=== PATIENT | male | born 1955 | race Caucasian/White ===

== ENCOUNTER 2019-09-17 16:28 | Inpatient (IN) | payer MEDICARE, MEDICAID ==
[~2019-09-17] VITALS: Ht 172.7 cm; Wt 70.0 kg
--- NOTE | 2019-09-17 16:40 | NUR ---
TO ROOM 4 FOR STROKE ALERT, PT RETURNS FROM CT. HAS SLURRED SPEECH, DIFFICULTY WITH WORD FINDING. 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 PT REPORTS DRANK 6 PK BEER AND WEED, HAS PAINFUL TOOTH.
--- NOTE | 2019-09-17 16:50 | NUR ---
PT TAKEN TO CT AND BACK TO ROOM. STROKE NURSE IS AT BEDSIDE.
[2019-09-17 16:58] LABS: BASOPHILS # (AUTO) 0.1 X10'3 (0-0.2); EOSINOPHILS # (AUTO) 0.2 X10'3 (0-0.9); EOSINOPHILS % (AUTO) 1.9 % (0-6); HEMOGLOBIN 15.9 g/dl (14.0-17.9); LYMPHOCYTES # (AUTO) 1.9 X10'3 (1.1-4.8); MEAN CORPUSCULAR HEMOGLOBIN 34.2 PG (27.0-31.0); MEAN CORPUSCULAR HGB CONC 34.6 g/dL (33.0-36.5); MEAN CORPUSCULAR VOLUME 98.7 FL (78-98); MONOCYTES # (AUTO) 0.8 X10'3 (0-0.9); MONOCYTES % (AUTO) 8.4 % (2-12); NEUTROPHILS # (AUTO) 6.5 X10'3 (1.8-7.7); NEUTROPHILS % (AUTO) 68.7 % (42-75); PLATELET COUNT 180 X10'3 (140-440); RED BLOOD COUNT 4.66 X10'6 (4.70-6.10); RED CELL DISTRIBUTION WIDTH 14.5 % (11.5-14.5); WHITE BLOOD COUNT 9.4 X10'3 (4.5-11.0)
--- NOTE | 2019-09-17 17:00 | NUR ---
ARRIVES, STATES PT HAD SEVERAL LARGE SHOTS OF ALCOHOL WITH BEER AND CANABIS . SHE IS CONCERNED THAT THIS IS A STROKE, HE HAS HAD ONE BEFORE. NEURO CONSULT WITH SOC REQUESTED.
[2019-09-17] MEDS ORDERED: mag hydrox/Alum hydrox/simeth 30ml oral suspension PO ONE (17:15)
[2019-09-17 17:16] LABS: PARTIAL THROMBOPLASTIN TIME 27 SECONDS (22-32)
[2019-09-17 17:17] LABS: ALANINE AMINOTRANSFERASE 42 U/L (12-78); ALBUMIN 3.8 G/DL (3.4-5.0); ALKALINE PHOSPHATASE 102 IU/L (46-116); ANION GAP 9 (8-16); ASPARTATE AMINO TRANSFERASE 33 U/L (10-37); BILIRUBIN,TOTAL 0.3 MG/DL (0.1-1.0); BLOOD UREA NITROGEN 11 MG/DL (7-18); BUN/CREATININE RATIO 11.5 (5.4-32.0); CALCIUM 8.7 MG/DL (8.5-10.1); CHLORIDE 106 MMOL/L (99-107); CREATININE 0.96 MG/DL (0.60-1.10); GLUCOSE 85 MG/DL (70-104); POTASSIUM 3.3 MMOL/L (3.5-5.1); SODIUM 142 MMOL/L (135-145); TOTAL CARBON DIOXIDE 26.9 MMOL/L (24-32); TOTAL PROTEIN 7.8 G/DL (6.4-8.2); eGFR 79 ML/MIN
[2019-09-17 17:19] LABS: TROPONIN I < 0.04 NG/ML (0.0-0.05)
--- NOTE | 2019-09-17 17:20 | NUR ---
DR. HOBBS CONSULTS VIA TELEMEDICINE. NIHSS 2 WITH CHRONIC RIGHT SIDE WEAKNESS.
[2019-09-17] MEDS ORDERED: NO HOME MEDS (17:51)
[2019-09-17] MEDS: normal saline 1000ml 1,000 ML IV SCH (17:52)
[2019-09-17 17:55] LABS: ETHANOL 0.231 GM/DL (0.0-0.010)
[2019-09-17] MEDS ORDERED: mag hydrox/Alum hydrox/simeth 30ml oral suspension PO PRN (17:55)
[2019-09-17] MEDS ORDERED: magnesium 2GM in 50ml NS 50 ML IV PRN (17:55)
[2019-09-17] MEDS ORDERED: magnesium hydroxide 30ml (MOM) UD suspension PO PRN (17:55)
[2019-09-17] MEDS ORDERED: magnesium 4gm in 100ml NS 100 ML IV PRN (17:55)
[2019-09-17] MEDS ORDERED: LORazepam 2 mg/ml vial IV PRN (17:55)
[2019-09-17] MEDS ORDERED: dextrose 50%-water 50ml dispensing syringe IV PRN (17:55)
[2019-09-17] MEDS ORDERED: metoclopramide 5 mg/ml inj IV PRN (17:55)
[2019-09-17] MEDS ORDERED: thiamine 100mg/ml 2ml inj. IV ONE (17:55)
[2019-09-17] MEDS ORDERED: potassium CL 10mEq/100ml bag 100 ML IV PRN ×2 (17:55)
[2019-09-17] MEDS ORDERED: ondansetron/PF 4mg/2ml inj IV PRN (17:55)
[2019-09-17] MEDS ORDERED: HYDROcodone/acetaminophen 10/325mg tab PO PRN (17:55)
[2019-09-17] MEDS ORDERED: haloperidol lactate 5mg/ml inj IM PRN (17:55)
[2019-09-17] MEDS ORDERED: acetaminophen 325mg tablet PO PRN ×2 (17:55)
[2019-09-17] MEDS ORDERED: haloperidol 5mg tablet PO PRN (17:55)
[2019-09-17] MEDS ORDERED: potassium Cl 20 mEq SR tablet PO PRN ×2 (17:55)
[2019-09-17] MEDS ORDERED: magnesium Cl slow-release 64mg tablet PO PRN (17:55)
[2019-09-17 18:08] LABS: PHOSPHORUS 3.3 MG/DL (2.3-4.5)
[2019-09-17 18:39] LABS: URINE AMPHETAMINE SCREEN NEGATIVE (Neg); URINE BARBITUATE SCREEN NEGATIVE (Neg); URINE BENZODIAZEPINES SCREEN NEGATIVE (Neg); URINE CANNABINOID SCREEN POSITIVE (Neg); URINE COCAINE SCREEN NEGATIVE (Neg); URINE METHADONE SCREEN NEGATIVE (Neg); URINE OPIATE SCREEN NEGATIVE (Neg); URINE PHENCYCLIDINE SCREEN NEGATIVE (Neg)
--- NOTE | 2019-09-17 19:16 | NUR ---
Patient refuses to wear vitals monitoring and continuously pulls them off despite education.
[2019-09-17] MEDS: HYDROcodone/acetaminophen 5mg/325mg tablet PO PRN (19:41)
--- NOTE | 2019-09-17 19:42 | NUR ---
Patient now complaining of left upper tooth pain 07/23, I gave him [place] .
[2019-09-17] MEDS: aspirin 81mg tablet.DR PO SCH (19:46)
[2019-09-17 20:21] VITALS: BP 153/94
[2019-09-17] MEDS ORDERED: pneumococcal 23-VAL P-sac vacc 25 mcg/0.5ml vial IMVAC ONE (20:45)
[2019-09-17] MEDS ORDERED: FLU VACC QS 2019-20 (6 MOS UP) 60 MCG/0.5 ML VIAL IMVAC ONE (20:50)
[2019-09-17] MEDS ORDERED: temazepam 15mg capsule PO PRN (21:00)
[2019-09-17 22:00] VITALS: BP 109/52
[2019-09-18 02:00] VITALS: BP 121/64
[2019-09-18] MEDS: normal saline 1000ml 1,000 ML IV SCH (03:52)
[2019-09-18 06:00] VITALS: BP 144/81
[2019-09-18 06:05] LABS: BASOPHILS # (AUTO) 0.1 X10'3 (0-0.2); BASOPHILS % (AUTO) 1.1 % (0-1); EOSINOPHILS # (AUTO) 0.4 X10'3 (0-0.9); EOSINOPHILS % (AUTO) 5.4 % (0-6); HEMATOCRIT 44.9 % (42.0-52.0); HEMOGLOBIN 15.3 g/dl (14.0-17.9); LYMPHOCYTES # (AUTO) 1.8 X10'3 (1.1-4.8); LYMPHOCYTES % (AUTO) 25.2 % (21-51); MEAN CORPUSCULAR HEMOGLOBIN 33.6 PG (27.0-31.0); MEAN CORPUSCULAR VOLUME 98.7 FL (78-98); MEAN PLATELET VOLUME 10.3 FL (7.4-10.4); MONOCYTES # (AUTO) 0.8 X10'3 (0-0.9); NEUTROPHILS # (AUTO) 4.1 X10'3 (1.8-7.7); NEUTROPHILS % (AUTO) 57.3 % (42-75); PLATELET COUNT 176 X10'3 (140-440); RED BLOOD COUNT 4.55 X10'6 (4.70-6.10); WHITE BLOOD COUNT 7.2 X10'3 (4.5-11.0)
--- NOTE | 2019-09-18 06:10 | NUR ---
Report given to Roberta PABON.
--- NOTE | 2019-09-18 06:31 | NUR ---
Patient in room ORTHO 4020. I have received report from Nazia PABON and had the opportunity to ask questions and assume patient care.
[2019-09-18 06:47] LABS: ALANINE AMINOTRANSFERASE 39 U/L (12-78); ALBUMIN 3.3 G/DL (3.4-5.0); ALBUMIN/GLOBULIN RATIO 0.9 (1.1-1.5); ALKALINE PHOSPHATASE 96 IU/L (46-116); ANION GAP 7 (8-16); ASPARTATE AMINO TRANSFERASE 27 U/L (10-37); BILIRUBIN,TOTAL 0.4 MG/DL (0.1-1.0); BLOOD UREA NITROGEN 15 MG/DL (7-18); BUN/CREATININE RATIO 15.2 (5.4-32.0); CALCIUM 8.6 MG/DL (8.5-10.1); CHLORIDE 108 MMOL/L (99-107); CHOL/HDL RATIO 2.7 (0.00-4.99); CHOLESTEROL 203 MG/DL (0-200); CREATININE 0.99 MG/DL (0.60-1.10); GLUCOSE 84 MG/DL (70-104); HDL CHOLESTEROL 74 MG/DL (35-60); LDL CHOLESTEROL 103 MG/DL (50-100); MAGNESIUM 2.1 MG/DL (1.5-2.4); PHOSPHORUS 3.4 MG/DL (2.3-4.5); POTASSIUM 4.3 MMOL/L (3.5-5.1); SODIUM 143 MMOL/L (135-145); TOTAL CARBON DIOXIDE 27.8 MMOL/L (24-32); eGFR 77 ML/MIN
[2019-09-18 06:48] LABS: TRIGLYCERIDES 105 MG/DL (20-135)
[2019-09-18] MEDS: aspirin 81mg tablet.DR PO SCH (07:23)
[2019-09-18] MEDS: HYDROcodone/acetaminophen 5mg/325mg tablet PO PRN (07:24)
[2019-09-18] MEDS ORDERED: K and/or MAG REPLACEMENT MC SCH (08:00)
--- NOTE | 2019-09-18 09:15 | NUR ---
Patient pulled IV out, and is refusing IV to be reinserted. Hospitalist notified.
[2019-09-18 10:00] VITALS: BP 169/72
--- NOTE | 2019-09-18 11:48 | NUR ---
Student documentation: I have reviewed all interventions, assessments performed and [facility] Medication Administration: For this medication-pass time frame, all medication were reviewed, dispensed, administered and documented per hospital policy [facility].
[2019-09-18] MEDS ORDERED: ATOR40TA PO (12:28)
[2019-09-18] MEDS ORDERED: ASPI-1071 PO (12:28)
--- NOTE | 2019-09-18 13:11 | NUR ---
Patient stable for discharge home today with . Back to baseline, all DC instructions given to patient and .
[2019-09-19] MEDS ORDERED: LORazepam 2 mg/ml vial IV PRN (17:55)
[2019-09-19] MEDS ORDERED: LORazepam 1 MG tablet PO PRN (17:55)
[2019-09-21] MEDS ORDERED: LORazepam 1 MG tablet PO PRN (17:55)
[2019-09-21] MEDS ORDERED: LORazepam 2 mg/ml vial IV PRN (17:55)
== END 2019-09-18 12:45 | disposition home or self-care (01) | DRG 896 ==
LOC: ER 16:28 → ED HOLD 18:04 → ORTHO 4S 20:00
PROVIDERS: ADMIT Family Medicine; ATTEND Family Medicine
DX: F10.229 Alcohol dependence with intoxication, unspecified (principal); G92 Toxic encephalopathy; I69.351 Hemiplegia and hemiparesis following cerebral infarction affecting right dominant side; R47.01 Aphasia; E87.6 Hypokalemia; E78.5 Hyperlipidemia, unspecified; Y90.7 Blood alcohol level of 200-239 mg/100 ml; R29.810 Facial weakness; R47.89 Other speech disturbances; I65.22 Occlusion and stenosis of left carotid artery; R09.89 Other specified symptoms and signs involving the circulatory and respiratory systems; Z79.899 Other long term (current) drug therapy
CPT/HCPCS: 36415; 70450; 71045; 80053; 80061; 80305; 80320; 83735; 84100; 84484; 85025; 85610; 85730; 87081; 93005; 97116; 97161; 97530; 99284; G0378; J3411; J7030; Q2037

== ENCOUNTER 2021-05-08 01:15 | Emergency (ER) | payer MEDICARE, MEDICAID ==
[~2021-05-08] VITALS: Ht 180.3 cm; Wt 68.2 kg
[~2021-05-08 01:15] MED LIST: ASPI-1071 PO
[2021-05-08 01:34] VITALS: BP 161/126
[2021-05-08] MEDS ORDERED: HYDROcodone/acetaminophen 5mg/325mg tablet PO ONE (02:45)
== END 2021-05-08 02:55 | disposition home or self-care (01) ==
LOC: ER 01:16
DX: S50.01XA Contusion of right elbow, initial encounter (principal); Z86.73 Personal history of transient ischemic attack (TIA), and cerebral infarction without residual deficits; Z98.890 Other specified postprocedural states; Z79.82 Long term (current) use of aspirin; Z72.89 Other problems related to lifestyle; W06.XXXA Fall from bed, initial encounter; Y93.89 Activity, other specified; Y92.89 Other specified places as the place of occurrence of the external cause; Y99.8 Other external cause status
CPT/HCPCS: 73080; 99283

== ENCOUNTER 2023-09-22 19:17 | Inpatient (IN) | payer MEDICARE, MEDICAID ==
[~2023-09-22] VITALS: Ht 172.7 cm; Wt 68.2 kg
[2023-09-22 20:10] LABS: BASOPHILS # (AUTO) 0.1 X10'3 (0-0.2); BASOPHILS % (AUTO) 1.1 % (0-1); EOSINOPHILS # (AUTO) 0.2 X10'3 (0-0.9); HEMATOCRIT 44.8 % (42.0-52.0); HEMOGLOBIN 15.1 g/dl (14.0-17.9); LYMPHOCYTES # (AUTO) 1.9 X10'3 (1.1-4.8); LYMPHOCYTES % (AUTO) 36.3 % (21-51); MEAN CORPUSCULAR HEMOGLOBIN 33.7 PG (27.0-31.0); MEAN CORPUSCULAR HGB CONC 33.6 g/dL (33.0-36.5); MEAN CORPUSCULAR VOLUME 100.2 FL (78-98); MEAN PLATELET VOLUME 10.2 FL (7.4-10.4); MONOCYTES # (AUTO) 0.4 X10'3 (0-0.9); NEUTROPHILS # (AUTO) 2.7 X10'3 (1.8-7.7); NEUTROPHILS % (AUTO) 51.6 % (42-75); PLATELET COUNT 178 X10'3 (140-440); RED BLOOD COUNT 4.47 X10'6 (4.70-6.10); RED CELL DISTRIBUTION WIDTH 12.5 % (11.5-14.5); WHITE BLOOD COUNT 5.3 X10'3 (4.5-11.0)
[2023-09-22 20:38] LABS: ALANINE AMINOTRANSFERASE 40 U/L (12-78); ALBUMIN 3.3 G/DL (3.4-5.0); ALBUMIN/GLOBULIN RATIO 0.9 (1.1-1.5); ALKALINE PHOSPHATASE 123 IU/L (46-116); ANION GAP 11 (8-16); ASPARTATE AMINO TRANSFERASE 46 U/L (10-37); BILIRUBIN,TOTAL 0.3 MG/DL (0.1-1.0); BLOOD UREA NITROGEN 7 MG/DL (7-18); BUN/CREATININE RATIO 5.5 (10.0-20.0); CALCIUM 8.5 MG/DL (8.5-10.1); CHLORIDE 104 MMOL/L (99-107); CREATININE 1.27 MG/DL (0.60-1.10); GLUCOSE 77 MG/DL (70-104); POTASSIUM 3.4 MMOL/L (3.5-5.1); SODIUM 141 MMOL/L (135-145); TOTAL CARBON DIOXIDE 26.5 MMOL/L (24-32); TOTAL PROTEIN 6.9 G/DL (6.4-8.2); eCRCL 55 ML/MIN; eGFR 57 ML/MIN
[2023-09-22 20:47] LABS: PRO BRAIN NATRIURETIC PEPTIDE 2075 PG/ML (0-125)
[2023-09-22 22:49] LABS: ETHANOL < 10 MG/DL (<10)
--- NOTE | 2023-09-22 23:17 | NUR ---
MD SEGAL NOTIFIED OF PTS ELEVATED BP. PER HE WILL PLACE ORDERS FOR PT.
[2023-09-22] MEDS ORDERED: hydrALAZINE 20mg/ml inj. IV ONE (23:30)
[2023-09-22] MEDS ORDERED: nicotine 21mg patch - 24 hr TD ONE (23:45)
--- NOTE | 2023-09-22 23:46 | NUR ---
pt requesting nicotine patch. pt states he smokes less than a pack a day. dr ferrer notified.
[2023-09-23] MEDS ORDERED: labetalol 20mg/4ml (5mg/ml) syringe IV ONE (01:15)
[2023-09-23] MEDS ORDERED: magnesium hydroxide 30ml (MOM) UD suspension PO PRN (02:35)
[2023-09-23] MEDS ORDERED: bisacodyl 10mg suppository rectal RC PRN (02:35)
[2023-09-23] MEDS ORDERED: acetaminophen 650mg rectal suppository RC PRN (02:35)
[2023-09-23] MEDS ORDERED: ondansetron 4mg rapidly disintigrating tab PO PRN (02:35)
[2023-09-23] MEDS ORDERED: diphenhydrAMINE 50 mg/ml inj IV PRN (02:35)
[2023-09-23] MEDS ORDERED: acetaminophen 325mg tablet PO PRN (02:35)
[2023-09-23] MEDS ORDERED: mag hydrox/Alum hydrox/simeth 30ml oral suspension PO PRN (02:35)
[2023-09-23] MEDS ORDERED: HYDROcodone/acetaminophen 5mg/325mg tablet PO PRN (02:35)
[2023-09-23] MEDS ORDERED: ondansetron/PF 4mg/2ml inj IV PRN (02:35)
[2023-09-23] MEDS ORDERED: diphenhydrAMINE 25mg capsule PO PRN (02:35)
[2023-09-23] MEDS ORDERED: potassium Cl 40MEQ/1/2NS 520ml 520 ML IV PRN (02:35)
[2023-09-23] MEDS ORDERED: potassium Cl 20 mEq SR tablet PO PRN ×2 (02:35)
[2023-09-23] MEDS ORDERED: haloperidol 5mg tablet PO PRN (02:45)
[2023-09-23] MEDS ORDERED: dextrose 50%-water 50ml dispensing syringe IV PRN (02:45)
[2023-09-23] MEDS ORDERED: haloperidol lactate 5mg/ml inj IM PRN (02:45)
[2023-09-23] MEDS: potassium Cl 20mEq in NS 1,000 ML IV SCH ×3 (03:33→16:52)
[2023-09-23 04:02] LABS: APTT 28 SECONDS (22-32); PROTHROMBIN TIME 10.9 SECONDS (9.0-12.0)
[2023-09-23 04:03] LABS: D-DIMER 0.45 MG/L FEU (0-0.50)
[2023-09-23 04:22] LABS: MAGNESIUM 2.1 MG/DL (1.5-2.4); POTASSIUM 3.7 MMOL/L (3.5-5.1); THYROID STIMULATING HORMONE 3.96 ulU/ml (0.34-4.50)
--- NOTE | 2023-09-23 05:06 | NUR ---
DR. JC NOTIFIED OF THE PTS BP. NO NEW ORDERS RECD.
--- NOTE | 2023-09-23 05:46 | NUR ---
I have reviewed and agree with all interventions, assessments performed and documented by MERA Hodge.
[2023-09-23] MEDS: LORazepam 2 mg/ml vial IV PRN ×2 (05:58→19:55)
--- NOTE | 2023-09-23 06:57 | NUR ---
Attempted to give report, nurse to call back.
--- NOTE | 2023-09-23 07:13 | NUR ---
Attempted to give report, no answer
[2023-09-23 07:19] LABS: URINE AMPHETAMINE SCREEN NEGATIVE (Neg); URINE BARBITUATE SCREEN NEGATIVE (Neg); URINE BENZODIAZEPINES SCREEN NEGATIVE (Neg); URINE CANNABINOID SCREEN POSITIVE (Neg); URINE COCAINE SCREEN NEGATIVE (Neg); URINE METHADONE SCREEN NEGATIVE (Neg); URINE OPIATE SCREEN NEGATIVE (Neg); URINE PHENCYCLIDINE SCREEN NEGATIVE (Neg)
--- NOTE | 2023-09-23 07:20 | NUR ---
attempted to give report to ortho, no answer
[2023-09-23] MEDS: docusate sod 100mg capsule PO SCH ×2 (08:00→19:38)
[2023-09-23] MEDS: thiamine 100mg/ml 2ml inj. IV SCH ×3 (08:35→19:55)
[2023-09-23] MEDS: atorvastatin 20mg tablet PO SCH (08:37)
[2023-09-23] MEDS: pantoprazole 40mg Tablet.DR PO SCH (08:37)
[2023-09-23] MEDS: nicotine 21mg patch - 24 hr TD SCH (08:37)
[2023-09-23 09:00] VITALS: BP 176/78; PULSE 69; RESP 14; TEMP 97.8; O2SAT 100
[2023-09-23] MEDS: folic acid 1mg/0.2ml inj IV SCH (09:31)
[2023-09-23 10:00] VITALS: BP 181/71; PULSE 70; RESP 16; TEMP 99; O2SAT 100
[2023-09-23 11:20] VITALS: RESP 14; O2SAT 100
--- NOTE | 2023-09-23 14:08 | NUR ---
PAGER ID: [phone] MESSAGE: CM HAGEN, ORTHO, 1679. RE: [id number]. PT. IS STILL NPO. CAN PT. BE PUT ON REG DIET?
--- NOTE | 2023-09-23 17:35 | NUR ---
PAGER ID: [phone] MESSAGE: CM HAGEN, ORTHO, 1324. RE: [phone]. PT. BP STILL HIGH 185/74. FYI
[2023-09-23 18:00] VITALS: BP 185/74; PULSE 71; RESP 16; TEMP 97.3; O2SAT 97
--- NOTE | 2023-09-23 18:51 | NUR ---
Problems reprioritized. Patient report given to samanta PABON, questions answered & plan of care reviewed with .
[2023-09-23 20:00] VITALS: RESP 16; O2SAT 97
[2023-09-23 22:00] VITALS: BP 182/62; PULSE 83; RESP 20; TEMP 97.4; O2SAT 96
[2023-09-24] MEDS: potassium Cl 20mEq in NS 1,000 ML IV SCH ×3 (02:52→19:31)
[2023-09-24 06:00] VITALS: BP 171/76; PULSE 66; RESP 22; TEMP 97.4; O2SAT 98
[2023-09-24 06:20] LABS: BASOPHILS # (AUTO) 0.1 X10'3 (0-0.2); BASOPHILS % (AUTO) 0.8 % (0-1); EOSINOPHILS # (AUTO) 0.2 X10'3 (0-0.9); EOSINOPHILS % (AUTO) 2.8 % (0-6); HEMATOCRIT 40.9 % (42.0-52.0); HEMOGLOBIN 13.9 g/dl (14.0-17.9); LYMPHOCYTES # (AUTO) 1.2 X10'3 (1.1-4.8); LYMPHOCYTES % (AUTO) 18.7 % (21-51); MEAN CORPUSCULAR HEMOGLOBIN 34.1 PG (27.0-31.0); MEAN CORPUSCULAR HGB CONC 33.9 g/dL (33.0-36.5); MEAN CORPUSCULAR VOLUME 100.7 FL (78-98); MONOCYTES # (AUTO) 0.5 X10'3 (0-0.9); MONOCYTES % (AUTO) 7.6 % (2-12); NEUTROPHILS # (AUTO) 4.6 X10'3 (1.8-7.7); NEUTROPHILS % (AUTO) 70.1 % (42-75); PLATELET COUNT 137 X10'3 (140-440); RED BLOOD COUNT 4.06 X10'6 (4.70-6.10); RED CELL DISTRIBUTION WIDTH 12.6 % (11.5-14.5); WHITE BLOOD COUNT 6.6 X10'3 (4.5-11.0)
[2023-09-24 06:23] LABS: ALBUMIN 2.7 G/DL (3.4-5.0); ANION GAP 6 (8-16); BLOOD UREA NITROGEN 13 MG/DL (7-18); BUN/CREATININE RATIO 9.9 (10.0-20.0); CALCIUM 8.5 MG/DL (8.5-10.1); CHLORIDE 111 MMOL/L (99-107); CREATININE 1.31 MG/DL (0.60-1.10); GLUCOSE 94 MG/DL (70-104); SODIUM 142 MMOL/L (135-145); TOTAL CARBON DIOXIDE 24.6 MMOL/L (24-32); eCRCL 53 ML/MIN; eGFR 55 ML/MIN
[2023-09-24 07:50] LABS: LARGE PLATELETS FEW; PLATELET ESTIMATE DECREASED
[2023-09-24] MEDS: docusate sod 100mg capsule PO SCH ×2 (08:00→20:00)
[2023-09-24] MEDS: pantoprazole 40mg Tablet.DR PO SCH (08:21)
[2023-09-24] MEDS: atorvastatin 20mg tablet PO SCH (08:22)
[2023-09-24] MEDS: nicotine 21mg patch - 24 hr TD SCH (08:23)
[2023-09-24] MEDS: thiamine 100mg/ml 2ml inj. IV SCH ×3 (08:28→20:41)
[2023-09-24] MEDS: folic acid 1mg/0.2ml inj IV SCH (08:28)
[2023-09-24 10:30] VITALS: RESP 16; O2SAT 99
[2023-09-24 11:00] VITALS: BP 174/79; PULSE 77; RESP 16; TEMP 98; O2SAT 99
[2023-09-24] MEDS: HYDROcodone/acetaminophen 10/325mg tab PO PRN ×2 (11:00→17:49)
--- NOTE | 2023-09-24 11:36 | NUR ---
Offered pt a toothbrush and toothpaste to brush teeth, but he did not want to at this time.
[2023-09-24] MEDS: morphine 2 MG/ML inj. syringe IV PRN ×2 (13:48→20:41)
--- NOTE | 2023-09-24 14:03 | NUR ---
Malnutrition consult: Per RN malnutrition screen pt reports no wt loss, unsure if wt loss has occurred in the last 3 months, and a decreased PO intake/appetite. Scaled wt this admit of 68.18kg (150 pounds) is consistent with prior reported wt of 150 pounds. No other recent wt hx in EMR other than pt verbally stated wt was 70kg (154 pounds) on 09/18/2019 suggesting overall wt appears to have been stable for the last few years. Pt is currently on a regular diet, appears to have great appetite with average PO intake of 100% x 2 meals. Per H&P pt physically appears well developed and well nourished. Pt presents with mild weakness which is anticipated given hx of CVA resulting in upper and lower extremity weakness per EMR. Additionally pt does not present with edema at this time. Pt lacks a minimum of two malnutrition criteria at this time. Will continue to monitor for signs and symptoms of malnutrition. Addendum: 09/24/23 at [address] Amended: Links added.
--- NOTE | 2023-09-24 15:30 | NUR ---
Student documentation: I have reviewed all interventions, assessments performed and documented by [facility] Student nurse @ [facility].
[2023-09-24 17:00] VITALS: BP 187/75; PULSE 62; RESP 15; TEMP 96.1; O2SAT 98
[2023-09-24] MEDS: LORazepam 2 mg/ml vial IV PRN (17:54)
[2023-09-24 18:00] VITALS: BP 167/75; PULSE 62; RESP 15; RESP 16; TEMP 96.1; O2SAT 98
[2023-09-24] MEDS: temazepam 15mg capsule PO PRN (20:49)
[2023-09-24 22:00] VITALS: BP 161/72; PULSE 60; RESP 16; TEMP 98.2; O2SAT 97
--- NOTE | 2023-09-24 22:01 | NUR ---
patient appeared painful, kati around neck states its chronic pain. medicated as per emar, sleeping at this time.
[2023-09-25] VITALS (7 sets, daily range): BP systolic 158–178; BP diastolic 65–90; PULSE 62–81; RESP 14–18; TEMP 97.4–98.3; O2SAT 96–97
--- NOTE | 2023-09-25 00:56 | NUR ---
Problems reprioritized. Patient report given, questions answered & plan of care reviewed with Jami PABON.
--- NOTE | 2023-09-25 01:00 | NUR ---
Patient in room ORTHO 4012. I have received report from EFRAIN and had the opportunity to ask questions and assume patient care.
[2023-09-25] MEDS ORDERED: LORazepam 2 mg/ml vial IV PRN (02:45)
[2023-09-25] MEDS ORDERED: LORazepam 1 MG tablet PO PRN (02:45)
[2023-09-25] MEDS: potassium Cl 20mEq in NS 1,000 ML IV SCH ×2 (03:38→15:05)
[2023-09-25 05:56] LABS: BASOPHILS # (AUTO) 0.1 X10'3 (0-0.2); BASOPHILS % (AUTO) 0.8 % (0-1); EOSINOPHILS # (AUTO) 0.3 X10'3 (0-0.9); EOSINOPHILS % (AUTO) 3.8 % (0-6); HEMATOCRIT 39.5 % (42.0-52.0); HEMOGLOBIN 13.1 g/dl (14.0-17.9); LYMPHOCYTES # (AUTO) 1.7 X10'3 (1.1-4.8); LYMPHOCYTES % (AUTO) 24.8 % (21-51); MEAN CORPUSCULAR HEMOGLOBIN 33.8 PG (27.0-31.0); MEAN CORPUSCULAR HGB CONC 33.3 g/dL (33.0-36.5); MEAN CORPUSCULAR VOLUME 101.6 FL (78-98); MEAN PLATELET VOLUME 10.9 FL (7.4-10.4); MONOCYTES # (AUTO) 0.5 X10'3 (0-0.9); MONOCYTES % (AUTO) 7.7 % (2-12); NEUTROPHILS # (AUTO) 4.2 X10'3 (1.8-7.7); NEUTROPHILS % (AUTO) 62.9 % (42-75); PLATELET COUNT 120 X10'3 (140-440); RED BLOOD COUNT 3.89 X10'6 (4.70-6.10); RED CELL DISTRIBUTION WIDTH 12.9 % (11.5-14.5); WHITE BLOOD COUNT 6.7 X10'3 (4.5-11.0)
[2023-09-25 06:14] LABS: ALBUMIN 2.4 G/DL (3.4-5.0); ANION GAP 8 (8-16); BLOOD UREA NITROGEN 11 MG/DL (7-18); BUN/CREATININE RATIO 8.9 (10.0-20.0); CALCIUM 8.4 MG/DL (8.5-10.1); CHLORIDE 109 MMOL/L (99-107); CREATININE 1.23 MG/DL (0.60-1.10); GLUCOSE 87 MG/DL (70-104); POTASSIUM 4.1 MMOL/L (3.5-5.1); SODIUM 142 MMOL/L (135-145); TOTAL CARBON DIOXIDE 25.4 MMOL/L (24-32); eCRCL 57 ML/MIN; eGFR 59 ML/MIN
--- NOTE | 2023-09-25 06:28 | NUR ---
I have received report from Charge, and had the opportunity to ask questions and assume patient care. No distress at this time.
--- NOTE | 2023-09-25 06:43 | NUR ---
Problems reprioritized. Patient report given, questions answered & plan of care reviewed with GRAY.
[2023-09-25] MEDS: folic acid 1mg/0.2ml inj IV SCH (06:45)
[2023-09-25] MEDS: thiamine 100mg/ml 2ml inj. IV SCH ×3 (06:46→19:14)
--- NOTE | 2023-09-25 07:22 | NUR ---
Dr. Valerie lord in re: to PRN HTN medications. Pt is asymptomatic. Addendum: 09/25/23 at 0722 by Mary Alba LVN, LVN Amended: Links added.
[2023-09-25] MEDS: atorvastatin 20mg tablet PO SCH (07:30)
[2023-09-25] MEDS: docusate sod 100mg capsule PO SCH ×2 (07:30→19:17)
[2023-09-25] MEDS: pantoprazole 40mg Tablet.DR PO SCH (07:30)
[2023-09-25] MEDS: HYDROcodone/acetaminophen 10/325mg tab PO PRN ×3 (07:30→18:43)
[2023-09-25] MEDS: nicotine 21mg patch - 24 hr TD SCH (07:31)
[2023-09-25] MEDS ORDERED: hydrALAZINE 20mg/ml inj. IV SCH (08:00)
[2023-09-25] MEDS: hydrALAZINE 20mg/ml inj. IV PRN (09:06)
--- NOTE | 2023-09-25 18:11 | NUR ---
Problems reprioritized. Patient report given, questions answered & plan of care reviewed with CM Tsang. No distress at this time.
[2023-09-25] MEDS: temazepam 15mg capsule PO PRN (19:14)
[2023-09-26] VITALS (25 sets, daily range): BP systolic 126–210; BP diastolic 50–92; PULSE 62–99; RESP 14–24; TEMP 97.4–98.1; O2SAT 95–100
[2023-09-26] MEDS: potassium Cl 20mEq in NS 1,000 ML IV SCH (01:30)
--- NOTE | 2023-09-26 06:42 | NUR ---
Problems reprioritized. Patient report given, questions answered & plan of care reviewed with be Corea.
[2023-09-26] MEDS ORDERED: regadenoson 0.4mg/5ml syringe IV PRN (07:35)
[2023-09-26] MEDS ORDERED: aminophylline 250mg/10ml inj. IV PRN (07:35)
[2023-09-26] MEDS ORDERED: nitroGLYCERIN 0.4mg SUBLingual tab SL PRN (07:35)
[2023-09-26] MEDS: docusate sod 100mg capsule PO SCH ×2 (08:00→19:55)
[2023-09-26] MEDS: atorvastatin 20mg tablet PO SCH (08:00)
[2023-09-26] MEDS: hydrALAZINE 20mg/ml inj. IV PRN (08:26)
[2023-09-26] MEDS: aspirin 81mg, enteric-coated 1 TAB TABLET.DR PO SCH (08:30)
[2023-09-26] MEDS: nicotine 21mg patch - 24 hr TD SCH (08:48)
[2023-09-26] MEDS: pantoprazole 40mg Tablet.DR PO SCH (08:49)
[2023-09-26 09:12] LABS: BASOPHILS % (AUTO) 0.5 % (0-1); EOSINOPHILS # (AUTO) 0.2 X10'3 (0-0.9); EOSINOPHILS % (AUTO) 3.5 % (0-6); HEMATOCRIT 41.3 % (42.0-52.0); HEMOGLOBIN 13.8 g/dl (14.0-17.9); LYMPHOCYTES # (AUTO) 1.2 X10'3 (1.1-4.8); LYMPHOCYTES % (AUTO) 17.3 % (21-51); MEAN CORPUSCULAR HEMOGLOBIN 33.9 PG (27.0-31.0); MEAN CORPUSCULAR HGB CONC 33.6 g/dL (33.0-36.5); MEAN PLATELET VOLUME 11.4 FL (7.4-10.4); MONOCYTES # (AUTO) 0.6 X10'3 (0-0.9); MONOCYTES % (AUTO) 8.4 % (2-12); NEUTROPHILS # (AUTO) 4.8 X10'3 (1.8-7.7); NEUTROPHILS % (AUTO) 70.3 % (42-75); PLATELET COUNT 111 X10'3 (140-440); RED BLOOD COUNT 4.08 X10'6 (4.70-6.10); RED CELL DISTRIBUTION WIDTH 12.7 % (11.5-14.5); WHITE BLOOD COUNT 6.8 X10'3 (4.5-11.0)
[2023-09-26 09:21] LABS: ALBUMIN 2.7 G/DL (3.4-5.0); ANION GAP 6 (8-16); BLOOD UREA NITROGEN 10 MG/DL (7-18); BUN/CREATININE RATIO 8.1 (10.0-20.0); CALCIUM 8.4 MG/DL (8.5-10.1); CHLORIDE 107 MMOL/L (99-107); CREATININE 1.23 MG/DL (0.60-1.10); GLUCOSE 77 MG/DL (70-104); POTASSIUM 3.9 MMOL/L (3.5-5.1); SODIUM 139 MMOL/L (135-145); TOTAL CARBON DIOXIDE 25.8 MMOL/L (24-32); eCRCL 57 ML/MIN; eGFR 59 ML/MIN
[2023-09-26] MEDS ORDERED: hydrALAZINE 20mg/ml inj. IV ONE (10:25)
--- NOTE | 2023-09-26 10:32 | NUR ---
as clinical instructor, i reviewed student nurse physical assessment
[2023-09-26] MEDS ORDERED: furosemide 20 MG/2 ML vial IV ONE (10:50)
--- NOTE | 2023-09-26 10:55 | NUR ---
Received order for consult. Tried to meet with patient but he was with RN. Will try again.
[2023-09-26] MEDS: metoprolol tartrate 1mg/ml inj IV PRN ×2 (11:20→11:31)
[2023-09-26] MEDS: carVEDilol 3.125mg tablet PO SCH (19:55)
--- NOTE | 2023-09-26 21:04 | NUR ---
Student Medication Administration: For this medication-pass time frame, all medication were reviewed, dispensed, administered and documented per hospital policy by patti Mills [facility].
[2023-09-26] MEDS ORDERED: ATOR20TA66 PO (23:02)
[2023-09-26] MEDS ORDERED: COR3.125T PO (23:02)
[2023-09-27] MEDS ORDERED: LORazepam 2 mg/ml vial IV PRN (02:45)
[2023-09-27] MEDS ORDERED: LORazepam 1 MG tablet PO PRN (02:45)
[2023-09-27 06:00] VITALS: BP 176/73; PULSE 72; RESP 16; TEMP 98.1; O2SAT 96
--- NOTE | 2023-09-27 06:14 | NUR ---
Report to Salomon TESFAYE
--- NOTE | 2023-09-27 06:30 | NUR ---
Patient in room ORTHO 4012. I have received report from CM Corea and had the opportunity to ask questions and assume patient care.
[2023-09-27 06:55] LABS: BASOPHILS % (AUTO) 0.8 % (0-1); EOSINOPHILS # (AUTO) 0.2 X10'3 (0-0.9); EOSINOPHILS % (AUTO) 3.5 % (0-6); HEMATOCRIT 41.4 % (42.0-52.0); LYMPHOCYTES # (AUTO) 1.1 X10'3 (1.1-4.8); MEAN CORPUSCULAR HEMOGLOBIN 33.9 PG (27.0-31.0); MEAN CORPUSCULAR HGB CONC 33.7 g/dL (33.0-36.5); MEAN CORPUSCULAR VOLUME 100.5 FL (78-98); MEAN PLATELET VOLUME 11.2 FL (7.4-10.4); MONOCYTES # (AUTO) 0.6 X10'3 (0-0.9); MONOCYTES % (AUTO) 10.3 % (2-12); NEUTROPHILS # (AUTO) 4.1 X10'3 (1.8-7.7); NEUTROPHILS % (AUTO) 67.4 % (42-75); PLATELET COUNT 118 X10'3 (140-440); RED BLOOD COUNT 4.12 X10'6 (4.70-6.10); RED CELL DISTRIBUTION WIDTH 12.5 % (11.5-14.5); WHITE BLOOD COUNT 6.1 X10'3 (4.5-11.0)
[2023-09-27 07:07] LABS: ALBUMIN 2.7 G/DL (3.4-5.0); ANION GAP 9 (8-16); BLOOD UREA NITROGEN 13 MG/DL (7-18); CALCIUM 8.7 MG/DL (8.5-10.1); CHLORIDE 105 MMOL/L (99-107); GLUCOSE 76 MG/DL (70-104); POTASSIUM 3.5 MMOL/L (3.5-5.1); SODIUM 142 MMOL/L (135-145); TOTAL CARBON DIOXIDE 27.6 MMOL/L (24-32); eCRCL 54 ML/MIN; eGFR 55 ML/MIN
[2023-09-27] MEDS: carVEDilol 3.125mg tablet PO SCH (07:27)
[2023-09-27] MEDS: nicotine 21mg patch - 24 hr TD SCH (07:28)
[2023-09-27] MEDS: pantoprazole 40mg Tablet.DR PO SCH (07:30)
[2023-09-27] MEDS: atorvastatin 20mg tablet PO SCH (07:34)
[2023-09-27] MEDS: docusate sod 100mg capsule PO SCH (07:34)
[2023-09-27] MEDS: aspirin 81mg, enteric-coated 1 TAB TABLET.DR PO SCH (07:38)
[2023-09-27] MEDS ORDERED: LISI2.5T14 PO (07:55)
[2023-09-27 08:00] VITALS: RESP 16; O2SAT 96
[2023-09-27] MEDS ORDERED: thiamine 100mg tablet PO SCH (08:00)
[2023-09-27] MEDS ORDERED: folic acid 1mg tablet PO SCH (08:00)
[2023-09-27 08:58] VITALS: RESP 16; O2SAT 98
[2023-09-27 09:45] VITALS: RESP 16
[2023-09-27 10:00] VITALS: BP 179/70; PULSE 63; RESP 18; TEMP 97.6; O2SAT 97
--- NOTE | 2023-09-27 14:21 | NUR ---
Pt stable for discharge. IV discontinued prior to d/c. Patient signed d/c paperwork and left with all personal belongings. and friend present at the time of discharge. Patient was wheeled down to the lobby with the assistance of one staff member and got into private car with spouse to go home. D/C @ 12:45
== END 2023-09-27 12:50 | disposition home or self-care (01) | DRG 291 ==
LOC: ER 19:17 → ED HOLD 09-23 02:42 → UNDOADMIN 09-23 02:42 → ED HOLD 09-23 02:48 → ORTHO 4S 09-23 07:00
PROVIDERS: ADMIT Family Medicine; ATTEND Internal Medicine
PROC: 4A02XM4 Measurement of Cardiac Total Activity, External Approach (ICD-10-PCS; principal; 2023-09-26)
PROC: 3E033HZ Introduction of Radioactive Substance into Peripheral Vein, Percutaneous Approach (ICD-10-PCS; 2023-09-26)
DX: I13.0 Hypertensive heart and chronic kidney disease with heart failure and stage 1 through stage 4 chronic kidney disease, or unspecified chronic kidney disease (principal); I50.33 Acute on chronic diastolic (congestive) heart failure; N17.9 Acute kidney failure, unspecified; I69.351 Hemiplegia and hemiparesis following cerebral infarction affecting right dominant side; N18.9 Chronic kidney disease, unspecified; F17.210 Nicotine dependence, cigarettes, uncomplicated; F12.10 Cannabis abuse, uncomplicated; F10.10 Alcohol abuse, uncomplicated; I20.9 Angina pectoris, unspecified; E88.09 Other disorders of plasma-protein metabolism, not elsewhere classified; E78.5 Hyperlipidemia, unspecified; D69.6 Thrombocytopenia, unspecified; E87.6 Hypokalemia; I69.328 Other speech and language deficits following cerebral infarction
CPT/HCPCS: 36415; 70450; 70551; 71045; 78452; 80048; 80053; 80305; 80320; 83690; 83735; 83880; 84100; 84132; 84443; 84484; 85008; 85025; 85379; 85610; 85730; 87081; 93017; 93306; 97161; 97530; 99285; A9500; G0378; J0360; J1940; J2060; J2270; J2405; J2785; J3411; J3480; J3490